=== PATIENT | female | born 1935 | race Caucasian/White ===

== ENCOUNTER 2019-11-06 09:37 | Outpatient (CLI) | payer MEDICARE, OTHER ==
[2019-11-06 14:36] LABS: ALT (SGPT) 13 U/L (8-55); AST (SGOT) 20 U/L (5-34); Albumin 3.9 g/dL (3.4-4.8); Alkaline Phosphatase 85 U/L (40-110); Anion Gap 14 mmol/L (10-20); BUN (Urea Nitrogen) 15 mg/dL (9.8-20.1); Bilirubin, Total 0.6 mg/dL (0.2-1.2); Calc. Creatinine Clearance 0 mL/min (70-130); Calcium 9.3 mg/dL (7.8-10.44); Carbon Dioxide 26 mmol/L (23-31); Chloride 106 mmol/L (98-107); Estimated GFR-MDRD 71; Globulin 2.9 g/dL (2.4-3.5); Glucose 101 mg/dL (83-110); Potassium 4.8 mmol/L (3.5-5.1); Protein, Total 6.8 g/dL (6.0-8.3); Sodium 141 mmol/L (136-145)
[2019-11-06 14:37] LABS: Cardiac Risk 3.7 (Less than 4.5)
[2019-11-06 15:09] LABS: #Basophils 0.1 thou/uL (0.0-0.2); #Eosinphils 0.1 thou/uL (0.0-0.7); #Monocytes 0.5 thou/uL (0.11-0.59); #Neutrophils 2.6 thou/uL (1.40-6.50); %Basophils 1.5 % (0.0-1.0); %Eosinophils 2.8 % (0.0-10.0); %Lymphocytes 37.6 % (21.0-51.0); %Monocytes 8.9 % (0.0-10.0); %Neutrophils 49.3 % (42.0-75.0); Hemoglobin 13.7 g/dL (12.0-16.0); Mean Corpuscular HGB CONC 31.7 g/dL (32.0-36.0); Mean Corpuscular Hemoglobin 31.3 pg (27.0-31.0); Mean Corpuscular Volume 98.9 fL (78.0-98.0); Mean Platelet Volume 7.3 fL (7.4-10.4); Platelet Count 247 thou/uL (130-400); RBC Distribution Width 12.4 % (11.5-14.5); Red Blood Cell (RBC) Count 4.39 mill/uL (4.20-5.40); White Blood Cell (WBC) Count 5.3 thou/uL (4.8-10.8)
[2019-11-09 17:08] LABS: Hemoglobin A1c 5.9 % (4.0-6.0)
== END 2019-11-06 09:38 | disposition home or self-care (01) ==
LOC: BURLAB 09:37
PROVIDERS: ATTEND Internal Medicine Cardiovascular Disease
DX: R06.00 Dyspnea, unspecified (principal)
CPT/HCPCS: 36415; 80053; 80061; 83036; 83880; 85025

== ENCOUNTER 2021-06-12 14:37 | Observation (INO) | payer MEDICARE, OTHER ==
[2021-06-12 17:33] LABS: Hemoglobin 14.4 g/dL (12.0-16.0); Mean Corpuscular HGB CONC 34.2 g/dL (32.0-36.0); Mean Corpuscular Volume 96.6 fL (78.0-98.0); Mean Platelet Volume 7.2 fL (7.4-10.4); Platelet Count 270 thou/uL (130-400); RBC Distribution Width 13.1 % (11.5-14.5); Red Blood Cell (RBC) Count 4.38 mill/uL (4.20-5.40); White Blood Cell (WBC) Count 13.7 thou/uL (4.8-10.8)
[2021-06-12 17:48] LABS: ALT (SGPT) 22 U/L (8-55); AST (SGOT) 23 U/L (5-34); Albumin 3.9 g/dL (3.4-4.8); Alkaline Phosphatase 103 U/L (40-110); Anion Gap 16 mmol/L (10-20); BUN (Urea Nitrogen) 18 mg/dL (9.8-20.1); Bilirubin, Total 0.5 mg/dL (0.2-1.2); Calc. Creatinine Clearance 0 mL/min (70-130); Calcium 9.8 mg/dL (7.8-10.44); Carbon Dioxide 26 mmol/L (23-31); Chloride 103 mmol/L (98-107); Globulin 3.3 g/dL (2.4-3.5); Glucose 116 mg/dL (83-110); Protein, Total 7.2 g/dL (5.8-8.1); Sodium 141 mmol/L (136-145)
[2021-06-12 18:10] LABS: Bilirubin Negative (Negative); Blood, Urine Negative (Negative); Clarity Slightly Cloudy (Clear); Glucose, Urine (Dipstick) Negative (Negative); Ketone, Urine 15 mg/dL (Negative); Leukocyte Moderate (Negative); Nitrite Negative (Negative); Protein, Urine (Dipstick) Negative (Neg-Trace); Specific Gravity, Urine 1.025 (1.005-1.030); Urobilinogen 0.2 mg/dL (Less than 2); pH, Urine 5.5 (5.0-9.0)
[2021-06-12] MEDS ORDERED: cefTRIAXone\\ROCEPHIN 2 GM VIAL ONE (18:15)
[2021-06-12] MEDS ORDERED: Sodium Chloride 0.9% 100 ML ONE (18:15)
[2021-06-12 18:41] LABS: Bacteria/HPF Rare-Few HPF (None Seen); RBC/HPF None Seen HPF (0-3); WBC/HPF 21-50 HPF (0-3)
[2021-06-12 18:42] LABS: Calcium Oxalate Crystals 3+ HPF (None Seen)
[2021-06-12 19:47] LABS: Band 6 % (5-11); Eosinophils 2 % (0-10); Lymphocytes 13 % (21-51); MDiff Complete? YES; Monocytes 5 % (0-10); Neutrophil 73 % (42-75); Reactive Lymphocytes 1 % (0-10)
[2021-06-12] MEDS ORDERED: Acetaminophen 500 MG TAB ONE (20:00)
[2021-06-12] MEDS ORDERED: Boostrix 0.5 ML (Tdap) VIAL ONE (20:00)
[2021-06-12 20:10] LABS: Lactic Acid 1.3 mmol/L (0.5-2.2)
[2021-06-12 20:37] LABS: SARS-CoV-2 NAA Rapid Test Not Detected (NotDetected)
[2021-06-12] MEDS ORDERED: Piperacillin/Tazobactam 3.375 GM in Sodium Chloride 0.9% 100 ML IVPB SCH (23:15)
[2021-06-12] MEDS ORDERED: Ondansetron ODT 4 MG TAB SL PRN (23:15)
[2021-06-12] MEDS ORDERED: Ondansetron PF 4 MG/2 ML Vial IVP PRN (23:15)
[2021-06-12] MEDS ORDERED: Bisacodyl 10 MG SUPP PR PRN (23:48)
[2021-06-12] MEDS ORDERED: Bisacodyl 5 MG TAB PO PRN (23:48)
[2021-06-12] MEDS: Acetaminophen 325 MG TAB PO PRN (23:51)
[2021-06-13] MEDS ORDERED: Piperacillin/Tazobactam 3.375 GM in Sodium Chloride 0.9% 100 ML IVPB SCH (03:15)
[2021-06-13 05:12] LABS: #Basophils 0.1 thou/uL (0.0-0.2); #Eosinphils 0.1 thou/uL (0.0-0.7); #Lymphocytes 2.3 thou/uL (1.20-3.40); #Monocytes 1.1 thou/uL (0.11-0.59); #Neutrophils 5.7 thou/uL (1.40-6.50); %Basophils 1.6 % (0.0-1.0); %Eosinophils 0.9 % (0.0-10.0); %Lymphocytes 24.6 % (21.0-51.0); %Monocytes 11.8 % (0.0-10.0); %Neutrophils 61.2 % (42.0-75.0); Hemoglobin 11.8 g/dL (12.0-16.0); Mean Corpuscular HGB CONC 33.8 g/dL (32.0-36.0); Mean Corpuscular Hemoglobin 32.8 pg (27.0-31.0); Mean Corpuscular Volume 97.1 fL (78.0-98.0); Mean Platelet Volume 6.8 fL (7.4-10.4); Platelet Count 194 thou/uL (130-400); RBC Distribution Width 12.9 % (11.5-14.5); Red Blood Cell (RBC) Count 3.58 mill/uL (4.20-5.40); White Blood Cell (WBC) Count 9.3 thou/uL (4.8-10.8)
[2021-06-13 05:21] LABS: ALT (SGPT) 18 U/L (8-55); AST (SGOT) 19 U/L (5-34); Albumin 3.1 g/dL (3.4-4.8); Alkaline Phosphatase 71 U/L (40-110); Anion Gap 11 mmol/L (10-20); BUN (Urea Nitrogen) 14 mg/dL (9.8-20.1); Bilirubin, Total 0.8 mg/dL (0.2-1.2); Calc. Creatinine Clearance 82 mL/min (70-130); Calcium 8.6 mg/dL (7.8-10.44); Carbon Dioxide 24 mmol/L (23-31); Chloride 108 mmol/L (98-107); Globulin 2.4 g/dL (2.4-3.5); Glucose 106 mg/dL (83-110); Potassium 3.7 mmol/L (3.5-5.1); Protein, Total 5.5 g/dL (5.8-8.1); Sodium 139 mmol/L (136-145)
[2021-06-13] MEDS: Rosuvastatin 10 MG TAB PO SCH (10:34)
[2021-06-13] MEDS: Amlodipine 5 MG TAB PO SCH (10:35)
[2021-06-13] MEDS: Aspirin 81 mg Enteric Coated Tablet PO SCH (10:35)
[2021-06-13] MEDS: Cyanocobalamin (Vitamin B-12) 1,000 MCG TAB PO SCH (10:35)
[2021-06-13] MEDS: Ferrous Sulfate 325 MG TAB PO SCH (10:36)
[2021-06-13] MEDS: Furosemide 20 MG TAB PO SCH (10:36)
[2021-06-13] MEDS: Enoxaparin Sodium 30 MG/0.3 ML SYRINGE SC SCH (10:37)
[2021-06-13] MEDS: Piperacillin/Tazobactam 3.375 GM in Sodium Chloride 0.9% 100 ML IVPB SCH ×2 (13:04→20:07)
[2021-06-13] MEDS: Acetaminophen 325 MG TAB PO PRN ×2 (13:27→20:09)
[2021-06-13] MEDS: Vancomycin HCl 1 GM in Sodium Chloride 0.9% 250 ML 250 ML IVPB SCH (17:47)
[2021-06-13] MEDS: Pregabalin 50 MG CAP PO SCH (20:07)
[2021-06-13] MEDS: Donepezil HCl 10 MG TAB PO SCH (20:10)
[2021-06-13] MEDS: FLUoxetine HCl 10 MG CAP PO SCH (20:10)
[2021-06-14] MEDS: Acetaminophen 325 MG TAB PO PRN ×2 (00:49→21:12)
[2021-06-14] MEDS: Piperacillin/Tazobactam 3.375 GM in Sodium Chloride 0.9% 100 ML IVPB SCH ×3 (04:23→22:16)
[2021-06-14] MEDS: Enoxaparin Sodium 30 MG/0.3 ML SYRINGE SC SCH (09:38)
[2021-06-14] MEDS: Amlodipine 5 MG TAB PO SCH (09:39)
[2021-06-14] MEDS: Cyanocobalamin (Vitamin B-12) 1,000 MCG TAB PO SCH (09:39)
[2021-06-14] MEDS: Ferrous Sulfate 325 MG TAB PO SCH (09:39)
[2021-06-14] MEDS: Saccharomyces boulardii 250 MG CAP PO SCH (09:39)
[2021-06-14] MEDS: Furosemide 20 MG TAB PO SCH (09:40)
[2021-06-14] MEDS: Rosuvastatin 10 MG TAB PO SCH (09:40)
[2021-06-14] MEDS: Aspirin 81 mg Enteric Coated Tablet PO SCH (09:40)
[2021-06-14] MEDS ORDERED: Piperacillin/Tazobactam 3.375 GM VIAL ONE (14:32)
[2021-06-14] MEDS ORDERED: Vancomycin HCl 1 GM in Sodium Chloride 0.9% 250 ML 250 ML IVPB SCH (21:00)
[2021-06-14] MEDS: Pregabalin 50 MG CAP PO SCH (21:13)
[2021-06-14] MEDS: Donepezil HCl 10 MG TAB PO SCH (21:13)
[2021-06-14] MEDS: FLUoxetine HCl 10 MG CAP PO SCH (21:13)
[2021-06-15 03:48] VITALS: TEMP 98.4
[2021-06-15] MEDS: Piperacillin/Tazobactam 3.375 GM in Sodium Chloride 0.9% 100 ML IVPB SCH ×3 (04:13→16:54)
[2021-06-15] MEDS: Vancomycin HCl 1 GM in Sodium Chloride 0.9% 250 ML 250 ML IVPB SCH (04:13)
[2021-06-15] MEDS ORDERED: FLU VACC QS2021-22(65YR UP)/PF 240 MCG/0.7 ML SYRINGE IM ONE (09:00)
[2021-06-15] MEDS: Saccharomyces boulardii 250 MG CAP PO SCH (09:38)
[2021-06-15] MEDS: Enoxaparin Sodium 30 MG/0.3 ML SYRINGE SC SCH (09:38)
[2021-06-15] MEDS: Cyanocobalamin (Vitamin B-12) 1,000 MCG TAB PO SCH (09:39)
[2021-06-15] MEDS: Amlodipine 5 MG TAB PO SCH (09:39)
[2021-06-15] MEDS: Furosemide 20 MG TAB PO SCH (09:39)
[2021-06-15] MEDS: Ferrous Sulfate 325 MG TAB PO SCH (09:39)
[2021-06-15] MEDS: Rosuvastatin 10 MG TAB PO SCH (09:39)
[2021-06-15] MEDS: Aspirin 81 mg Enteric Coated Tablet PO SCH (09:39)
[2021-06-15 09:43] VITALS: BP 159/90
== END 2021-06-15 17:25 | disposition swing bed (61) ==
LOC: BURERS 14:40 → BURMED 19:35
PROVIDERS: ADMIT Family Medicine; ATTEND Family Medicine
DX: L03.115 Cellulitis of right lower limb (principal); N39.0 Urinary tract infection, site not specified; S91.351A Open bite, right foot, initial encounter; I10 Essential (primary) hypertension; Z79.82 Long term (current) use of aspirin; Z79.899 Other long term (current) drug therapy; Z88.5 Allergy status to narcotic agent; Z88.8 Allergy status to other drugs, medicaments and biological substances; Z20.822 Contact with and (suspected) exposure to COVID-19; W55.01XA Bitten by cat, initial encounter
CPT/HCPCS: 0240U; 36415; 80053; 81003; 81015; 83605; 85025; 87040; 87070; 87149; 87205; 87324; 87449; 90471; 90715; 96365; 96367; 96372; 96376; G0378; J0696; J1650; J2543; J3370; J3490; J7050

== ENCOUNTER 2021-09-26 13:30 | Emergency (ER) | payer MEDICARE, OTHER ==
[2021-09-26 14:27] LABS: Bilirubin Negative (Negative); Blood, Urine Negative (Negative); Clarity Slightly Cloudy (Clear); Glucose, Urine (Dipstick) Negative (Negative); Ketone, Urine Trace mg/dL (Negative); Leukocyte Negative (Negative); Nitrite Negative (Negative); Protein, Urine (Dipstick) Negative (Neg-Trace); Urobilinogen 0.2 mg/dL (Less than 2)
== END 2021-09-26 14:56 | disposition home or self-care (01) ==
LOC: BURERS 13:30
DX: N39.0 Urinary tract infection, site not specified (principal); I10 Essential (primary) hypertension
CPT/HCPCS: 81003; 87086; 99284

== ENCOUNTER 2022-03-04 18:43 | Emergency (ER) | payer MEDICARE, OTHER ==
[2022-03-04] MEDS ORDERED: Iopamidol 370 76% 100 ML VIAL FS ONE (18:44)
[2022-03-04 19:21] LABS: #Basophils 0.1 thou/uL (0.0-0.2); #Eosinphils 0.1 thou/uL (0.0-0.7); #Monocytes 0.6 thou/uL (0.11-0.59); #Neutrophils 2.8 thou/uL (1.40-6.50); %Eosinophils 2.3 % (0.0-10.0); %Lymphocytes 35.6 % (21.0-51.0); %Monocytes 10.1 % (0.0-10.0); Hemoglobin 13.3 g/dL (12.0-16.0); Mean Corpuscular HGB CONC 33.2 g/dL (32.0-36.0); Mean Corpuscular Hemoglobin 32.4 pg (27.0-31.0); Mean Corpuscular Volume 97.7 fL (78.0-98.0); Mean Platelet Volume 6.4 fL (7.4-10.4); Platelet Count 221 thou/uL (130-400); RBC Distribution Width 12.9 % (11.5-14.5); White Blood Cell (WBC) Count 5.5 thou/uL (4.8-10.8)
[2022-03-04 19:37] LABS: ALT (SGPT) 18 U/L (8-55); AST (SGOT) 21 U/L (5-34); Albumin 3.7 g/dL (3.4-4.8); Alkaline Phosphatase 78 U/L (40-110); Anion Gap 15 mmol/L (10-20); BUN (Urea Nitrogen) 15 mg/dL (9.8-20.1); Bilirubin, Total 0.3 mg/dL (0.2-1.2); Calc. Creatinine Clearance 0 mL/min (70-130); Calcium 8.9 mg/dL (7.8-10.44); Carbon Dioxide 26 mmol/L (23-31); Chloride 104 mmol/L (98-107); Estimated GFR 72; Globulin 2.9 g/dL (2.4-3.5); Glucose 114 mg/dL (83-110); Lipase 28 U/L (8-78); Protein, Total 6.6 g/dL (5.8-8.1); Sodium 141 mmol/L (136-145)
[2022-03-04 19:51] LABS: Bilirubin Negative (Negative); Blood, Urine Negative (Negative); Clarity Clear (Clear); Glucose, Urine (Dipstick) Negative (Negative); Ketone, Urine Negative (Negative); Leukocyte Negative (Negative); Nitrite Negative (Negative); Protein, Urine (Dipstick) Negative (Neg-Trace); Urobilinogen 0.2 mg/dL (Less than 2)
[2022-03-04 20:02] LABS: Specific Gravity, Urine Less/Equal 1.005 (1.005-1.030)
[2022-03-04] MEDS ORDERED: Pantoprazole 40 MG VIAL ONE (20:20)
== END 2022-03-04 21:20 | disposition home or self-care (01) ==
LOC: BURERS 18:43
DX: K57.31 Diverticulosis of large intestine without perforation or abscess with bleeding (principal); I10 Essential (primary) hypertension; Z79.899 Other long term (current) drug therapy; Z79.82 Long term (current) use of aspirin
CPT/HCPCS: 36415; 74177; 80053; 81003; 82274; 83605; 83690; 85025; 96361; 96374; C9113; Q9967